=== PATIENT | female | born 1935 | race Caucasian/White ===

== ENCOUNTER 2018-01-04 05:00 | Day surgery (SDC) | payer OTHER ==
[~2018-01-04 05:00] MED LIST: ALBUTEROL0.63 MG/3 IH; COREG CR10 MG PO; COZAAR100 MG PO; HYDROCHLOROTHIA25 MG PO; NIFE60TA3 PO; SYNTHROID50 MCG PO
[2018-01-04] MEDS ORDERED: ULTRACET PO (08:05)
[2018-01-04] MEDS ORDERED: RECTICARE30 GM TOP (08:05)
== END 2018-01-04 11:30 | disposition home or self-care (01) ==
LOC: CIR.AMB 05:00
DX: D12.8 Benign neoplasm of rectum (principal)